=== PATIENT | female | born 1980 | race Caucasian/White ===

== ENCOUNTER 2022-06-13 06:01 | Day surgery (SDC) | payer OTHER ==
[2022-06-08 15:10] LABS: Hemoglobin 12.9 g/dL (12.0-15.5); Mean Corpuscular HGB CONC 33.7 g/dL (32.0-36.0); Mean Corpuscular Hemoglobin 30.9 pg (27.0-33.0); Mean Corpuscular Volume 91.6 fl (81.6-98.3); Mean Platelet Volume 9.7 fl (7.4-10.4); Platelet Count 340 10x3/uL (150-450); RBC Distribution Width 12.2 % (11.5-14.5); Red Blood Cell (RBC) Count 4.18 10x6/uL (3.90-5.03); White Blood Cell (WBC) Count 3.6 10x3/uL (3.5-10.5)
[2022-06-08 15:34] LABS: BHCG - Serum Negative (NEGATIVE); Pregs Control Background? CLEAR/WHITE (CLR/WHITE); Pregs Control Bar Appear? YES (CONTROL BAR)
[2022-06-11 11:43] VITALS: BMI 21.2
[2022-06-13] MEDS ORDERED: Lidocaine 1% MPF 2 ML VIAL ONE (06:13)
[2022-06-13] MEDS ORDERED: Gabapentin 300 MG CAP ONE (06:13)
[2022-06-13] MEDS ORDERED: CeleCOXIB 100 MG CAP ONE (06:13)
[2022-06-13] MEDS ORDERED: Famotidine/PF 20 mg/2ml Vial ONE (06:14)
[2022-06-13] MEDS ORDERED: Bupivacaine PF 0.5% 30 ML VIAL ONE (06:55)
[2022-06-13] MEDS ORDERED: EPINEPHrine 1 MG/ML AMP ONE (06:55)
[2022-06-13] MEDS ORDERED: Midazolam HCl 2 mg/2 ml Vial ONE ×2 (06:58→07:04)
[2022-06-13] MEDS ORDERED: Fentanyl 250 MCG/5 ML VIAL ONE (07:04)
[2022-06-13] MEDS ORDERED: Ondansetron PF 4 MG/2 ML Vial ONE (07:04)
[2022-06-13] MEDS ORDERED: Rocuronium Bromide 10 MG/ML (10ML VIAL) ONE (07:04)
[2022-06-13] MEDS ORDERED: Lidocaine 1% PF 5 ML VIAL ONE (07:04)
[2022-06-13] MEDS ORDERED: PROPOFOL 20 ML ONE (07:04)
[2022-06-13] MEDS ORDERED: Dexamethasone 4 mg/ml Vial ONE (07:04)
[2022-06-13] MEDS ORDERED: Glycopyrrolate 0.2 MG/ML 5 ML SYRINGE ONE (07:05)
[2022-06-13] MEDS ORDERED: CEFAZOLIN 2 GM VIAL ONE (07:26)
[2022-06-13] MEDS ORDERED: PHENYLEPHRINE-NS 100 MCG/ML 10 ML SYRINGE ONE (08:00)
[2022-06-13] MEDS ORDERED: HYDROcodone/Acetaminophen 5/325 mg Tablet ONE (11:03)
[2022-06-13] MEDS ORDERED: Ondansetron ODT 4 MG TAB ONE (12:55)
== END 2022-06-13 15:50 | disposition home or self-care (01) ==
LOC: CSHSDC 06:01
PROVIDERS: ATTEND Student in an Organized Health Care Education/Training Program
PROC: 0UT94ZZ Resection of Uterus, Percutaneous Endoscopic Approach (ICD-10-PCS; principal; 2022-06-13)
DX: D25.2 Subserosal leiomyoma of uterus (principal); K66.0 Peritoneal adhesions (postprocedural) (postinfection); N93.8 Other specified abnormal uterine and vaginal bleeding; D68.51 Activated protein C resistance; Z79.899 Other long term (current) drug therapy; Z20.822 Contact with and (suspected) exposure to COVID-19
CPT/HCPCS: 36415; 84703; 85027; 86850; 86900; 86901; 87811; 88307; C1713; J0171; J0690; J1100; J2250; J2405; J2704; J3010; Q0162; S0020; S0028